=== PATIENT | female | born 1945 | race Caucasian/White ===

== ENCOUNTER → 2017-10-24 | Outpatient (CLI) | payer MEDICARE ==
--- NOTE | 2017-10-24 10:48 | MR ---
EXAMINATION TYPE: MR brain wo/w con DATE OF EXAM: 10/24/2017 COMPARISON: HISTORY: Optic neuropathy, blurred vision TECHNIQUE: Multiplanar, multisequence images of the brain and brainstem is performed without and with IV contras t, utilizing 7 mL intravenous Gadavist . FINDINGS: Diffusion weighted images demonstrate no evidence of a recent infarct, restricted diffusion noted along the right optic nerve. There is no extra-axial fluid collection. Scattered hyperintens ities on inversion recovery and T2-weighted sequences are punctate within the deep white matter, appr oximately 5-10 lesions are present. The ventricular system and cisternal spaces are normal in size an d appearance. The brain volume is age appropriate. The optic nerve on the right shows abnormal enhancement as compared to the left, the right nerve show s T2 and inversion recovery increased signal and slight prominence compatible with edema Midline stru ctures demonstrate normal morphology, although there is partially empty sella. The craniocervical ju nction appears within normal limits. The dural venous sinuses appear patent. The visualized sinuses are clear and the globes are intact. Indeterminate focus of increased signal on T1 and T2-weighted se quences just deep to the body of the mandible on the right, axial image 2 and 3 of the inversion beba very and T2 data set with no enhancement following contrast administration along the pterygoid muscul ature could possibly represent ganglion cyst, but is indeterminate. IMPRESSION: Findings suggest optic neuritis, nonspecific white matter demyelination, correlate for po ssible multiple sclerosis or other etiology. Possible ganglion cyst as described.
== END | disposition home or self-care (01) ==
LOC: RADMRIMAIN 09:07
PROVIDERS: ATTEND Family Medicine
DX: R90.82 White matter disease, unspecified (principal); H53.8 Other visual disturbances
CPT/HCPCS: 70553; A9581

== ENCOUNTER → 2017-10-30 | Outpatient (CLI) | payer MEDICARE ==
--- NOTE | 2017-10-30 15:26 | US ---
EXAMINATION TYPE: US carotid duplex BILAT DATE OF EXAM: 10/30/2017 COMPARISON: MR Brain CLINICAL HISTORY: I10 Hypertension, Optic neuropathy H47.11. Swollen right optic nerve per patient. EXAM MEASUREMENTS: RIGHT: Peak Systolic Velocity (PSV) cm/sec ----- Right CCA: 79.8 ----- Right ICA: 86.7 ----- Right ECA: 89.2 ICA/CCA ratio: 1.1 RIGHT: End Diastole cm/sec ----- Right CCA: 26.0 ----- Right ICA: 32.9 ----- Right ECA: 14.1 LEFT: Peak Systolic Velocity (PSV) cm/sec ----- Left CCA: 64.7 ----- Left ICA: 79.0 ----- Left ECA: 56.7 ICA/CCA ratio: 1.2 LEFT: End Diastole cm/sec ----- Left CCA: 25.2 ----- Left ICA: 32.9 ----- Left ECA: 11.8 VERTEBRALS (direction of flow): Right Vertebral: Antegrade Left Vertebral: Antegrade Rhythm: Normal Grayscale images show no significant plaque at carotid bulb level bilaterally. Velocity measurements and ratios in visualized portion of both internal carotid arteries is within normal limits. IMPRESSION: No hemodynamically significant stenosis is seen in either internal carotid artery. Criteria for Assigning % of Stenosis / Diameter reduction (Estimation based on the indirect measurements of the internal carotid artery velocities (ICA PSV). 1. Normal (no stenosis)=ICA PSV < 125 cm/s: ratio < 2.0: ICA EDV<40 cm/s. 2. Less than 50% stenosis=ICA PSV < 125 cm/s: ratio < 2.0: ICA EDV<40 cm/s. 3. 50 to 69% stenosis=ICA PSV of 125 to 230 cm/s: ration 2.0 ? 4.0: ICA EDV 40-100 cm/s. 4. Greater than 70% stenosis to near occlusion= ICA PSV > 230 cm/s: ratio > 4.0: ICA EDV > 100 cm/s. 5. Near occlusion= ICA PSV velocities may be low or undetectable: variable ratio and ICA EDV. 6. Total occlusion=unable to detect flow.
--- NOTE | 2017-10-30 16:40 | ECHOF ---
Referral Reason:I10 Hypertension, Optic neuropathy H47.11 MEASUREMENTS -------- HEIGHT: 165.1 cm WEIGHT: 68.9 kg BP: IVSd: 1.4 cm (0.6 - 1.1) LVIDd: 3.5 cm (3.9 - 5.3) LVPWd: 1.4 cm (0.6 - 1.1) IVSs: 1.5 cm LVIDs: 2.4 cm LVPWs: 1.8 cm Ao Diam: 2.8 cm (2.0 - 3.7) AV Cusp: 1.6 cm (1.5 - 2.6) LA Diam: 3.1 cm (2.7 - 3.8) EPSS: 0.3 cm MV E Duke: 0.83 m/s MV DecT: 278 ms MV A Duke: 1.01 m/s MV E/A Ratio: 0.82 RAP: 5.00 mmHg RVSP: 22.51 mmHg MV EF SLOPE: 80.48 mm/s (70 - 150) MV EXCURSION: 1.59 cm (> 18.000) FINDINGS -------- Sinus rhythm. This was a technically good study. The left ventricular size is normal. There is moderate concentric left ventricular hypertrophy. O verall left ventricular systolic function is normal with, an EF between 55 - 60 %. The right ventricle is normal in size and function. The left atrium is normal in size. The right atrium is normal in size. The aortic valve is trileaflet, and appears structurally normal. No aortic stenosis or regurgitation. There is trace mitral regurgitation. Trace tricuspid regurgitation present. The right ventricular systolic pressure, as measured by Dopp ler, is 22.51mmHg. Trace/mild (physiologic) pulmonic regurgitation. The aortic root size is normal. Normal inferior vena cava with normal inspiratory collapse consistent with estimated right atrial pre ssure of 5 mmHg. The pericardium is normal. CONCLUSIONS -------- 1. Sinus rhythm. 2. This was a technically good study. 3. The left ventricular size is normal. 4. There is moderate concentric left ventricular hypertrophy. 5. Overall left ventricular systolic function is normal with, an EF between 55 - 60 %. 6. The right ventricle is normal in size and function. 7. The left atrium is normal in size. 8. The right atrium is normal in size. 9. The aortic valve is trileaflet, and appears structurally normal. No aortic stenosis or regurgitati on. 10. There is trace mitral regurgitation. 11. Trace tricuspid regurgitation present. 12. The right ventricular systolic pressure, as measured by Doppler, is 22.51mmHg. 13. Trace/mild (physiologic) pulmonic regurgitation. 14. The aortic root size is normal. 15. Normal inferior vena cava with normal inspiratory collapse consistent with estimated right atrial pressure of 5 mmHg. 16. The pericardium is normal. [employer] SUPERVISOR: Adele Miller RDCS
== END | disposition home or self-care (01) ==
LOC: RADECHMAIN 13:52
PROVIDERS: ATTEND Family Medicine
DX: I08.1 Rheumatic disorders of both mitral and tricuspid valves (principal); I11.9 Hypertensive heart disease without heart failure; H46.9 Unspecified optic neuritis
CPT/HCPCS: 93306; 93880